=== PATIENT | female | born 1990 | race Caucasian/White ===

== ENCOUNTER 2017-04-19 08:00 | Outpatient (CLI) | payer MEDICAID ==
[2017-04-19 18:59] LABS: THYROID STIMULATING HORMONE 2.37 uIU/mL (0.34-5.60)
== END 2017-04-19 08:01 | disposition home or self-care (01) ==
LOC: LAB.S 08:00
PROVIDERS: ATTEND Nurse Practitioner Family
DX: E03.9 Hypothyroidism, unspecified (principal)
CPT/HCPCS: 36415; 84439; 84443

== ENCOUNTER 2018-03-02 14:40 | Outpatient (CLI) | payer MEDICAID | END 2018-03-02 14:41 | disposition home or self-care (01) | LOC: LAB.F 14:40 | PROVIDERS: ATTEND Nurse Practitioner Family | DX: E03.9 Hypothyroidism, unspecified (principal) | CPT/HCPCS: 36415; 84443 ==

== ENCOUNTER 2022-07-06 12:49 | Outpatient (CLI) | payer OTHER ==
[2022-07-06 20:30] LABS: ALBUMIN 4.3 g/dL (3.2-5.5); ALBUMIN/GLOBULIN RATIO 1.4 (1.0-2.2); ALKALINE PHOSPHATASE 49 IU/L (42-121); ALT ALANINE AMINOTRANSFERASE 24 IU/L (10-60); AST ASPARTATE AMINOTRANSFERASE 19 IU/L (10-42); BILIRUBIN,TOTAL 0.8 mg/dL (0.2-1.0); BUN - BLOOD UREA NITROGEN 13 mg/dL (6-20); CALCIUM 9.5 mg/dL (8.5-10.3); CARBON DIOXIDE - CO2 27 mmol/L (21-32); CHLORIDE 104 mmol/L (101-111); CHOL/HDL RATIO 4.5 (<4.4); CHOLESTEROL 179 mg/dL; GFR - MDRD 66 (>89); GLUCOSE 107 mg/dL (70-100); HDL CHOLESTEROL 40 mg/dL; LDL CHOLESTEROL,CALCULATED 118 mg/dL; POTASSIUM 4.3 mmol/L (3.5-5.0); SODIUM 136 mmol/L (135-145); TOTAL PROTEIN 7.4 g/dL (6.7-8.2); TRIGLYCERIDES 103 mg/dL; VLDL CHOLESTEROL 21 mg/dL
[2022-07-06 20:36] LABS: THYROID STIMULATING HORMONE 2.87 uIU/mL (0.34-5.60)
[2022-07-06 20:38] LABS: FREE T4 (FREE THYROXINE) 1.19 ng/dL (0.58-1.64)
[2022-07-06 21:05] LABS: ESTIMATED AVERAGE GLUCOSE 100 mg/dL (70-100); HEMOGLOBIN A1c% 5.1 % (4.27-6.07)
[2022-07-08 18:07] LABS: FREE TESTOSTERONE(DIRECT) 4.1 pg/mL (0.0-4.2); SEX HORM BINDING GLOB SERUM 22.6 nmol/L (24.6-122.0)
== END 2022-07-06 12:50 | disposition home or self-care (01) ==
LOC: LAB.S 12:49
PROVIDERS: ATTEND Internal Medicine Endocrinology, Diabetes & Metabolism
DX: E03.9 Hypothyroidism, unspecified (principal); E27.8 Other specified disorders of adrenal gland; E66.9 Obesity, unspecified
CPT/HCPCS: 36415; 80053; 80061; 82627; 83036; 83498; 83721; 84270; 84402; 84403; 84439; 84443

== ENCOUNTER 2022-07-08 08:00 | Outpatient (CLI) | payer OTHER | END 2022-07-08 23:59 | disposition home or self-care (01) | LOC: LAB.R 08:00 | PROVIDERS: ATTEND Internal Medicine Endocrinology, Diabetes & Metabolism | DX: E27.8 Other specified disorders of adrenal gland (principal) | CPT/HCPCS: 81599; 82530; 82533 ==

== ENCOUNTER 2024-01-18 15:28 | Outpatient (CLI) | payer OTHER ==
--- NOTE | 2024-01-18 19:53 | XRAY Report ---
PROCEDURE: Elbow 1-2V RT INDICATIONS: RIGHT ELBOW PAIN TECHNIQUE: 2 views of the elbow were acquired. COMPARISON: None. FINDINGS: Bones: No fractures or dislocations. Normal alignment. No suspicious bony lesions. Soft tissues: No effusion. No suspicious soft tissue calcifications or masses. IMPRESSION: No acute bony abnormality. If pain persists with conservative management, consider repeat radiographs in 10-14 days or cross-sectional imaging. Reviewed by: Gina Noble MD on 01/18/2024 7:52 PM PDT Approved by: Gina Noble MD on 01/18/2024 7:52 PM PDT Station ID: [id number]
== END 2024-01-18 15:29 | disposition home or self-care (01) ==
LOC: DI 15:28
PROVIDERS: ATTEND Nurse Practitioner
DX: M25.521 Pain in right elbow (principal)